=== PATIENT | male | born 1995 | race Caucasian/White ===

== ENCOUNTER 2025-03-18 02:22 | Emergency (ER) | payer OTHER ==
[~2025-03-18] VITALS: Ht 180.3 cm; Wt 94.2 kg
--- NOTE | 2025-03-18 02:53 | Physician Documentation ---
History of Present Illness ~ Chief Complaint: Flank Pain Stated Complaint: FLANK PAIN Time Seen by MD: 02:52 HPI Patient presents to the emergency room with acute onset left flank pain. Patient reports that symptoms are similar to previous episode many years ago of kidney stone. No fevers. He took 1000 mg of Tylenol prior to coming to the emergency room. No dysuria. Positive nausea Medication Reconciliation Allergies: Coded Allergies: guaifenesin (Verified Allergy, Unknown, 03/18/25) Review of Systems ROS All review of systems negative except as per HPI Physical Exam Vital Signs: Temperature: 98.5, Source: Oral, Heart Rate: 99, Respiratory Rate: 22, BP: 139/83, Pulse Oximetry: 99, Weight: 94.200 Oxygen Flow Rate: 0 Physical Exam General: Patient is awake, alert, oriented x4 in mild distress. Diaphoretic Head: Normocephalic and atraumatic. Eyes: Conjunctival normal. EOMI. PERRL. ENT: Mucous membranes moist. Neck: Supple, trachea is midline. Chest: Clear to auscultation bilaterally without rales, rhonchi, or wheezes. There is no accessory muscle use or retractions. Cardiac: Tachycardic and regular without murmurs, gallops, or rubs. Abd: Soft, nondistended, nontender, with positive CVA tenderness on the left Progress Results/Orders Results/Orders Completed Orders - STEVE NARANJO MD Cbc/Diff (03/18/25 02:35) CMP (03/18/25 02:35) Procalcitonin (03/18/25 02:35) Ketorolac Trometh 15mg/Ml Vial (Toradol (03/18/25 02:55) Ondansetron Inj. (Zofran 4mg/2ml Vial) (03/18/25 02:55) Fentanyl/Pf (Fentanyl 0.05 Mg/Ml Syringe (03/18/25 03:00) Ua W/Microscopic, Cult If Ind (03/18/25 03:54) Medications Received in ER Medications (Trade) Dose Ordered Sig/Ashlie Route PRN Reason Start Time Stop Time Status Last Admin Dose Admin (Toradol injection) 15 mg ONCE ONCE IV 03/18/25 02:55 03/18/25 02:56 DC 03/18/25 03:00 15 MG (Zofran 4mg/2ml vial) 8 mg ONCE ONCE IV 03/18/25 02:55 03/18/25 02:56 DC 03/18/25 03:00 8 MG (fentaNYL 0.05 MG/ML syringe) 50 mcg ONCE ONCE IV 03/18/25 03:00 03/18/25 03:01 DC 03/18/25 03:06 50 MCG Vital Signs 03/18/25 03/18/25 03/18/25 02:32 02:50 03:42 Temp 98.5 98.5 Pulse 99 68 Resp 22 18 B/P (MAP) 139/83 137/89 (105) Pulse Ox 99 97 O2 Flow Rate 0 0 Laboratory Tests Test 03/18/25 02:49 03/18/25 03:54 White Blood Count 12.5 H Red Blood Count 5.17 Hemoglobin 16.2 Hematocrit 46.5 Mean Corpuscular Volume 90.0 Mean Corpuscular Hemoglobin 31.4 H Mean Corpuscular Hemoglobin Concent 34.9 Red Cell Distribution Width 13.8 Platelet Count 348 Mean Platelet Volume 7.9 Neutrophils (%) (Auto) 74.1 Lymphocytes (%) (Auto) 14.0 L Monocytes (%) (Auto) 10.7 Eosinophils (%) (Auto) 1.0 Basophils (%) (Auto) 0.2 Neutrophils # (Auto) 9.3 H Lymphocytes # (Auto) 1.7 Monocytes # (Auto) 1.3 H Eosinophils # (Auto) 0.1 Basophils # (Auto) 0.0 CBC Comment Sodium Level 140 Potassium Level 4.1 Chloride Level 101 Carbon Dioxide Level 33.7 H Anion Gap 5 L Blood Urea Nitrogen 12 Creatinine 1.10 Estimated GFR/1.73 m2 79 BUN/Creatinine Ratio 10.9 Glucose Level 124 H Calcium Level 9.0 Total Bilirubin 0.3 Aspartate Amino Transf (AST/SGOT) 20 Alanine Aminotransferase (ALT/SGPT) 48 Alkaline Phosphatase 94 Total Protein 7.9 Albumin 4.0 Globulin 3.9 Albumin/Globulin Ratio 1.0 L Procalcitonin < 0.05 Chemistry Comments Urine Specimen Description Voided Urine Color Yellow Urine Clarity Slightly cloudy Urine pH 6.5 Urine Specific Bieber 1.020 Urine Protein Negative Urine Glucose (UA) Negative Urine Ketones Negative Urine Occult Blood Moderate H Urine Nitrite Negative Urine Bilirubin Negative Urine Urobilinogen 0.2 Urine Leukocyte Esterase Negative Urine RBC 10-20 Urine WBC 0-4 Urine Squamous Epithelial Cells None seen Urine Amorphous Urates 1+ Urine Bacteria None seen Urine Mucus None seen Urine Culture Indicated Not ind Volume Urine Centrifuged 10 ml Urine Comment Medical Decision Making Additional information obtaine: old records Findings Patient presents to the emergency room for evaluation of left flank pain as per HPI. Differentials include but are not limited to kidney stone, pyelonephritis, muscle skeletal pain, aortic pathology therefore emergent labs ordered. No urinary tract infection but hematuria, no kidney injury, patient's symptoms responding to treatment. Given hematuria with symptoms consistent with previous history of kidney stone and after discussing the risks and benefits and utilizing shared decision-making we are not doing a CT scan that has we believe risk of radiation exposure outweighs any benefit at this juncture. We will treat for presumed kidney stone with ER precautions discussed Diff Dx GI Bleed:Consideration: Include: AE fistula, Angiodysplasia, Bleeding diathesis, Blood loss anemia, Carcinoma, Diverticulosis, Diverticulitis, Esophageal varicies, Esophagitis, Gastritis, Gastroenteritis, Inflammatory BD, Bre-Strong syndrome, Meckel's diverticulum, PUD, Other Diff Dx Pain:Considerations: Include: AAA, Angina/PR, Aortic dissection, Appendicitis, Bowel obstruction, Cholangitis, Cholecystitis, Cholelithasis, Constipation, Diverticular disease, Esophageal rupture, Esophagitis, Gastritis, Gastroenteritis, GI hemorrhage, Hepatitis, Hernia, Inflammatory BD, Ischemic bowel, Mass, Pancreatitis, Porphyria, PUD, Testicular torsion, Trauma, intraabdominal, Urinary obstruction, Urinary tract infection, Urolithiasis, Other Diff Dx N/V/D:Considerations: Include: Appendicitis, Bowel obstruction, Dehydration, DKA, Diarrhea - bacterial, Diarrhea - parasitic, Diarrhea - viral, Diverticulitis, Diverticulosis, Drug toxicity, Electrolyte imbalance, Food poisoning, Gastroenteritis, GE reflux, GI bleed, Hepatitis, Hernia, Hypovolemia, Hypotension, Inflammatory BD, Impaction, Malnutrition, Pancreatitis, PUD, Renal failure, Urinary obstruction, UTI, Urolithiasis, Other Diff Dx Rectal:Considerations: Include: Fissure, Fistula, Foreign body, Impaction, Perirectal abscess, Prostatitis, Rectal prolapse, Subcutaneous abscess, Thrombosed hemorrhoid, Ulcer, UTI, Other Departure Disposition: 01 HOME / SELF CARE / HOMELESS Impression: Primary Impression: Kidney stone Condition: Stable Discharge Instructions: Kidney Stones Referrals: NO PRIMARY CARE PROVIDER (PCP) Prescriptions Ondansetron 8mg ODT (Ondansetron Odt) 8 Mg Tab.rapdis 1 TAB PO Q6H for nausea/vomiting for 3 Days, #12 TAB 0 Refills Prov: STEVE NARANJO MD 03/18/25 Hydrocodone Bit/Acetaminophen 5/325 MG ([place] 5/325 MG) 5 Mg/325 Mg Tablet 1-2 TAB PO Q4-6 hours PRN for pain, #10 TAB Prov: STEVE NARANJO MD 03/18/25 Signature Scribe Signature: No scribe Attestation: The note accurately reflects work and decisions made by me.Steve Naranjo MD 03/18/25 04:24 STEVE NARANJO MD Mar 18, 2025 02:53
[2025-03-18] MEDS ORDERED: acetaminophen 1,000mg/100ml IV 100 ML IV ONE (02:55)
[2025-03-18] MEDS: ketorolac trometh 15mg/ml vial 15 MG/ML ML IV ONE (03:00)
[2025-03-18] MEDS: ondansetron/PF 4mg/2ml inj IV ONE (03:00)
[2025-03-18] MEDS: fentaNYL/PF 50MCG/1 ML 2ML syringe IV ONE (03:06)
[2025-03-18 03:08] LABS: MEAN PLATELET VOLUME 7.9 FL (7.4-10.4); RED CELL DISTRIBUTION WIDTH 13.8 % (11.5-14.5)
[2025-03-18 03:27] LABS: CREATININE 1.10 MG/DL (0.60-1.10); TOTAL CARBON DIOXIDE 33.7 MMOL/L (24-32); eCRCL 106 ML/MIN; eGFR 79 ML/MIN
[2025-03-18 03:42] VITALS: O2SAT 97
[2025-03-18 04:05] LABS: LEUKOCYTE ESTERASE ,URINE NEGATIVE (Neg); NITRITES, URINE NEGATIVE (Neg); OCCULT BLOOD,URINE MODERATE (Neg)
[2025-03-18 04:12] LABS: UA COLLECTION TYPE VOIDED
[2025-03-18 04:13] LABS: AMORPHOUS URATES 1+; MUCUS STRANDS NONE SEEN /LPF (Neg); SQUAMOUS EPITHELIAL CELL,UR NONE SEEN /LPF (FEW)
[2025-03-18] MEDS ORDERED: ONDA-245 PO (04:23)
[2025-03-18] MEDS ORDERED: HYDR-3965 PO (04:23)
[2025-03-18] MEDS: metoclopramide 5 mg/ml inj IV ONE (04:50)
[2025-03-18] MEDS: morphine 4 MG/ML inj SYRINge IV ONE (04:51)
[2025-03-18] MEDS: oxyCODONE IR 5mg (immed. release) tablet PO ONE (04:52)
[2025-03-18 05:11] VITALS: BP 154/101; PULSE 63; RESP 18; TEMP 98.5
== END 2025-03-18 05:49 | disposition home or self-care (01) ==
LOC: ER 02:23
DX: N20.0 Calculus of kidney (principal); Z87.442 Personal history of urinary calculi; Z88.8 Allergy status to other drugs, medicaments and biological substances
CPT/HCPCS: 36415; 80053; 81001; 84145; 85025; 96374; 96375; 99284; J1200; J1885; J2270; J2405; J2765; J3010